=== PATIENT | female | born 1985 | race Caucasian/White ===

== ENCOUNTER 2019-12-21 22:21 | Outpatient (REF) | payer BC, SELFPAY ==
[2019-12-22 17:32] LABS: Progesterone 1.7 ng/mL (See Table)
== END 2019-12-21 22:41 ==
LOC: NCHCN 22:21
PROVIDERS: PCP Internal Medicine; Visit Provider Naturopath
DX: N92.1 Excessive and frequent menstruation with irregular cycle (principal)
CPT/HCPCS: 84144